=== PATIENT | female | born 1965 | race Caucasian/White ===

== ENCOUNTER 2018-08-15 19:10 | Observation (INO) | payer BC ==
[~2018-08-15] VITALS: Ht 162.6 cm; Wt 145.6 kg
[2018-08-15] MEDS ORDERED: PRINIVIL5 MG PO (19:26)
[2018-08-15 19:32] LABS: BASO % 0.2 % (0.0-2.0); EOS # 0.5 (0.0-0.7); EOS % 6.2 % (0-4.0); GRAN # 5.6 (1.4-6.5); GRAN % 65.6 % (42.2-75.2); HEMATOCRIT 44.1 % (37.0-47.0); HEMOGLOBIN 14.1 g/dl (12.5-16.0); LYMPH # 1.5 (1.2-3.4); LYMPH % 17.6 % (20.0-51.0); MEAN CELL VOLUME 96 fl (80.0-100.0); MEAN CORPUSCULAR HEMOGLOBIN 31 pg (27.0-31.0); MEAN CORPUSCULAR HGB CONC 32 g/dl (33.0-37.0); MEAN PLATELET VOLUME 10.2 fl (7.4-10.4); MONO # 0.9 (0.1-0.6); MONO % 10.2 % (1.7-9.3); PLATELET COUNT 221 K/mm3 (130-400); RED BLOOD COUNT 4.62 M/mm3 (4.10-5.30); REDCELL DISTRIBUTION WIDTH-CV 13.9 % (11.5-14.5)
[2018-08-15 19:44] LABS: ALANINE AMINOTRANSFERASE < 6 U/L (9-52); ALBUMIN 4.2 gm/dL (3.5-5.0); ALKALINE PHOSPHATASE 94 U/L (50-136); ANION GAP 10 mmol/L (7-16); AST,SGOT 28 U/L (15-37); BILIRUBIN,TOTAL 0.5 mg/dL (0.0-1.0); BLOOD UREA NITROGEN 12 mg/dL (7-17); CALCIUM 9.9 mg/dL (8.4-10.2); CARBON DIOXIDE 32 mmol/L (22-30); CHLORIDE 100 mmol/L (98-107); CREATININE, serum 0.71 (0.52-1.25); GLUCOSE 97 mg/dL (74-106); POTASSIUM 3.9 mmol/L (3.4-5.0); SODIUM 142 mmol/L (137-145); TOTAL PROTEIN 8.7 gm/dL (6.4-8.2)
[2018-08-15 20:10] LABS: TROPONIN-I < 0.012 ng/mL (0.000-0.035)
[2018-08-15] MEDS ORDERED: LEVAQUIN 750MG750 M1 PO ×2 (21:25)
[2018-08-15 22:33] VITALS: BP 141/80; PULSE 91; TEMP 98.3
[2018-08-15] MEDS ORDERED: MUCINEX FAST-M180 M2 PO (22:38)
--- NOTE | 2018-08-16 00:45 | NUR ---
Patient arrived to room 316 from ER at approximately 2215. Denies having pain and discomfort. Alert and oriented, and able to make needs known. Two peripheral IVs to bilateral ACs. NS running at 125 ml/hr to left AC. Patient reports she has vertigo and gets dizzy when standing. Patient has been calling for assistance with toileting. Patient has a frequent, dry cough. Unable to produce any sputum. Does report she has SOB and dyspnea, especially when up moving around. LS with expiratory wheezes throughout. HRR. BSAx4. 1+ edema to BLE. Voices no needs or concerns at this time. Given IV Rocephin per orders and PO Azithromycin. Call light is within reach.
[2018-08-16] MEDS ORDERED: ALEVE 220MG220 MG PO (01:26)
[2018-08-16 04:02] VITALS: BP 128/61; PULSE 90; TEMP 98.2
--- NOTE | 2018-08-16 04:46 | NUR ---
Patient was unable to get comfortable in bed, so was assisted into recliner. Has been resting in recliner with legs elevated. NS continues to run at 125 ml/hr to left AC. Patient reminded that we need urine and sputum culture, and voiced understanding. Resting in recliner with eyes closed at this time. Call light is within reach.
--- NOTE | 2018-08-16 07:00 | NUR ---
Report received from SAMAN Thomas. PT in recliner resting, back wedger to provide PRN pain medication for back pain. Droplet precautions in place, will continue to monitor.
--- NOTE | 2018-08-16 07:27 | NUR ---
Report given to day shift nurse.
--- NOTE | 2018-08-16 08:00 | NUR ---
Assessment charted. Pt states she feels 99% better than yesterday and is anticipating discharge today. Resting in recliner, eating breakfast. No wheezing noted, pt states she can tell she is much better. INT to L AC, IVF to R AC. Pain in low back is a 1/10, chronic issue. Will continue to monitor.
[2018-08-16 08:23] VITALS: BP 160/88; PULSE 90; TEMP 97.8
[2018-08-16] MEDS ORDERED: ZITHROMAX500 M2 PO (10:15)
[2018-08-16] MEDS ORDERED: PROAIR HFA0.09 MG/AC IH (10:16)
[2018-08-16] MEDS ORDERED: PREDNISONE20 MG PO (10:16)
[2018-08-16] MEDS ORDERED: TYLENOL 325MG325 MG PO (10:18)
[2018-08-16] MEDS ORDERED: NAPROSYN500 MG PO (10:41)
[2018-08-16 11:27] VITALS: BP 174/78; PULSE 89; TEMP 98.4
--- NOTE | 2018-08-16 14:00 | NUR ---
Discharge teaching completed at this time. Pt received f/u appointment with correct PCP [facility] in [place]. INT's d/c'd, tip intact. Pt left via w/c with all belongings, daughter to drive home. Criteria met.
== END 2018-08-16 15:07 | disposition home or self-care (01) ==
LOC: COL.ER 19:10 → MEDICAL 21:37
PROVIDERS: Emergency Medicine; ADMIT Internal Medicine
DX: J18.1 Lobar pneumonia, unspecified organism (principal); I10 Essential (primary) hypertension; E66.01 Morbid (severe) obesity due to excess calories; L30.2 Cutaneous autosensitization; Z90.710 Acquired absence of both cervix and uterus; Z90.49 Acquired absence of other specified parts of digestive tract; Z88.0 Allergy status to penicillin; Z85.828 Personal history of other malignant neoplasm of skin; Z85.3 Personal history of malignant neoplasm of breast; Z82.49 Family history of ischemic heart disease and other diseases of the circulatory system; Z81.8 Family history of other mental and behavioral disorders
CPT/HCPCS: A4216; G0378; J0696; J1650; J2930; J7030; J7512; Q9967

== ENCOUNTER 2021-09-09 19:46 | Emergency (ER) | payer BC ==
[~2021-09-09] VITALS: Ht 162.6 cm; Wt 145.9 kg
[~2021-09-09 19:46] MED LIST: ALEVE 220MG220 MG PO; LEVAQUIN 750MG750 M1 PO; MUCINEX FAST-M180 M2 PO; NAPROSYN500 MG PO; PREDNISONE20 MG PO; PRINIVIL5 MG PO; PROAIR HFA0.09 MG/AC IH; TYLENOL 325MG325 MG PO; ZITHROMAX500 M2 PO
[2021-09-09 19:53] VITALS: TEMP 97.2
[2021-09-09] MEDS ORDERED: NORCO 325 MG-51 TAB PO (22:03)
[2021-09-09 22:16] VITALS: BP 129/84; PULSE 78
== END 2021-09-09 22:16 | disposition home or self-care (01) ==
LOC: COL.ER 19:46
DX: S93.401A Sprain of unspecified ligament of right ankle, initial encounter (principal); Z28.311 Partially vaccinated for COVID-19; W18.42XA Slipping, tripping and stumbling without falling due to stepping into hole or opening, initial encounter